=== PATIENT | male | born 1985 | race African-American/Black ===

== ENCOUNTER 2021-07-07 21:52 | Emergency (ER) | payer OTHER ==
[~2021-07-07] VITALS: Ht 170.2 cm; Wt 81.8 kg
[2021-07-07 21:54] VITALS: BP 133/83
[2021-07-08] MEDS ORDERED: OMEP40CA4 PO (03:43)
[2021-07-08] MEDS ORDERED: COLA100C5 PO (03:43)
[2021-07-08] MEDS ORDERED: MAALOX 30 ML SUSP *UDC PO ONE (03:45)
== END 2021-07-08 04:01 | disposition home or self-care (01) ==
LOC: M ED 21:52
DX: K21.9 Gastro-esophageal reflux disease without esophagitis (principal); K59.00 Constipation, unspecified

== ENCOUNTER → 2021-10-12 | Outpatient (CLI) | payer OTHER ==
[~2021-10-12] MED LIST: COLA100C5 PO; METHACHOLINE KIT (J7674) INH ONE; OMEP40CA4 PO
== END ==
LOC: M CARPUL 08:32
DX: R06.02 Shortness of breath (principal)

== ENCOUNTER → 2021-10-13 | Outpatient (CLI) | payer OTHER ==
[~2021-10-13] MED LIST changes: -METHACHOLINE KIT (J7674) INH ONE
== END ==
LOC: M CARPUL 07:27
DX: R07.9 Chest pain, unspecified (principal)